=== PATIENT | female | born 1980 | race Hispanic/Latino ===

== ENCOUNTER 2017-02-19 18:12 | Emergency (ER) | payer MEDICAID ==
[2017-02-19 18:43] VITALS: RESP 20; O2SAT 98
[2017-02-19] MEDS ORDERED: Sodium Chloride 0.9% 1,000 ML IV ONE (19:44)
--- NOTE | 2017-02-19 19:47 | C.PDOC ---
History Of Present Illness 36 yo female, at 4 weeks gestation presents with lower abd pain and vaginal bleeding x 5 days. pt states no fevers, no n/v/d, no urinary changes, has not seen ob, does not request pain meds at this time. Time Seen by Provider: 02/19/17 19:41 Chief Complaint (Nursing): Female Genitourinary Past Medical History Reviewed: Historical Data, Nursing Documentation, Vital Signs Vital Signs: Last Vital Signs Temp 98.7 F 02/19/17 18:40 Pulse 74 02/19/17 18:40 Resp 20 02/19/17 18:40 BP 134/76 02/19/17 18:40 Pulse Ox 98 02/19/17 19:47 - Medical History PMH: Anxiety, Bipolar Disorder Family History: States: Unknown Family Hx - Social History Hx Tobacco Use: Yes Hx Alcohol Use: No Hx Substance Use: No - Immunization History Hx Tetanus Toxoid Vaccination: Yes Hx Influenza Vaccination: No Hx Pneumococcal Vaccination: No Review Of Systems Except As Marked, All Systems Reviewed And Found Negative. Gastrointestinal: Positive for: Abdominal Pain Genitourinary: Positive for: Vaginal Bleeding Physical Exam - Physical Exam Appears: Well, No Acute Distress Skin: Normal Color, Warm, Dry Eye(s): bilateral: Normal Inspection, PERRL, EOMI Nose: Normal Throat: Normal Neck: Normal Cardiovascular: Rhythm Regular Respiratory: Normal Breath Sounds Gastrointestinal/Abdominal: Normal Exam, Soft, Tenderness (mild suprapubic), No Guarding, No Rebound Back: Normal Inspection Extremity: Normal ROM ED Course And Treatment - Laboratory Results Result Diagrams: 02/19/17 20:40 02/19/17 20:40 O2 Sat by Pulse Oximetry: 98 Medical Decision Making Medical Decision Making: r/o threated ab vs ectopic. pt does not request pain meds. labs imaging reassess 1030: iup confirmed. abd soft. pt declines pelvic. upon d/c. pt request refill of her nebulizer. lung minimal wheezing at this time Disposition - Disposition Referrals: Elmo Bennett [Staff Provider] - Disposition: HOME/ ROUTINE Disposition Time: 22:25 Condition: STABLE Additional Instructions: please see obgyn. return to er with worsening symptoms or concenrs. Prescriptions: Albuterol HFA [Ventolin HFA 90 mcg/actuation (8 g)] 2 puff IH [id number] PRN #1 puff PRN Reason: Wheezing Instructions: Threatened Miscarriage (ED) - Clinical Impression Clinical Impression: Threatened , Medication refill
[2017-02-19 20:46] LABS: BASO # 0.1 K/uL (0.0-0.2); BASO % 0.8 % (0.0-2.0); EOS # 0.1 K/uL (0.0-0.7); EOS % 1.7 % (0.0-4.0); HEMATOCRIT 42.4 % (34.0-47.0); LYMPH # 1.6 K/uL (1.0-4.3); LYMPH % 18.8 % (20.0-40.0); MEAN CELL VOLUME 92.4 fL (81.0-99.0); MEAN CORPUSCULAR HEMOGLOBIN 31.3 pg (27.0-31.0); MEAN CORPUSCULAR HGB CONC 33.8 g/dL (33.0-37.0); MEAN PLATELET VOLUME 8.1 fL (7.2-11.7); MONO # 0.4 K/uL (0.0-0.8); MONO % 5.3 % (0.0-10.0); NRBC % 0.1 % (0.0-2.0); RED CELL DISTRIBUTION WIDTH 13.4 % (11.5-14.5); WHITE BLOOD COUNT 8.5 K/uL (4.8-10.8)
[2017-02-19 20:58] LABS: CHLORIDE 95 mmol/L (98-107)
[2017-02-19 20:59] LABS: SODIUM 136 mmol/L (132-148)
[2017-02-19 21:00] LABS: RBC URINE 6 /hpf (0-3); URINE BACTERIA RARE (<OCC); URINE BILIRUBIN NEGATIVE (NEGATIVE); URINE COLOR Yellow (YELLOW); URINE GLUCOSE (UA) NORMAL (Normal); URINE KETONE TRACE mg/dL (NEGATIVE); URINE LEUKOCYTE ESTERASE NEG Leu/uL (Negative); URINE PROTEIN NEGATIVE (NEGATIVE); URINE UROBILINOGEN NORMAL mg/dL (0.2-1.0); WBC URINE 1 /hpf (0-5)
[2017-02-19 21:01] LABS: ALB/GLOB RATIO 1.2 (1.0-2.1); ALKALINE PHOSPHATASE 64 U/L (38-126); AST/SGOT 52 U/L (14-36); BILIRUBIN,TOTAL 0.5 mg/dL (0.2-1.3); CARBON DIOXIDE 24 mmol/L (22-30); GFR AFRICAN-AMERICAN > 60; TOTAL PROTEIN 8.5 g/dL (6.3-8.3); URINE BLOOD 1+ (NEGATIVE)
[2017-02-19 21:02] LABS: ALT/SGPT 68 U/L (9-52); BLOOD UREA NITROGEN 9 mg/dL (7-17); CALCIUM 9.3 mg/dl (8.6-10.4); GLUCOSE,RANDOM 90 mg/dL (65-105)
[2017-02-19 21:09] LABS: POTASSIUM 3.9 mmol/L (3.6-5.2)
[2017-02-19 22:38] VITALS: BP 147/64; PULSE 69; TEMP 97.6
--- NOTE | 2017-02-20 09:32 | US ---
PROCEDURE: OB Pelvic Ultrasound HISTORY: Abdominal pain COMPARISON: None available. FINDINGS: UTERUS: Gestational sac: Single intrauterine gestation. Yolk sac and pole are visualized. Heart rate: 126 bpm. age (Ultrasound estimated): 6 weeks and 1 day Maria Alejandra-gestational hemorrhage: There is a small subchorionic hemorrhage measuring 1.1 x 0.3 x 0.8 cm. Date of delivery (Ultrasound estimated) : 10/14/2017 Uterus measures 8.2 x 5.1 x 6.4 cm. Anteverted, normal in size and appearance. CERVIX: Long and closed. No cervical abnormality seen. RIGHT OVARY: Measures 3.7 x 2.4 x 2.8 cm. No mass lesion. Normal flow. There is a 2.2 cm corpus luteum cyst. LEFT OVARY: Measures 2.6 x 1.1 x 1.7 cm. No solid mass. Normal flow. FREE FLUID: None. OTHER FINDINGS: None. IMPRESSION: Single live intrauterine gestation with mean gestational age of 6 weeks and 1 day. The ultrasound dates correspond with the clinical dates. Small subchorionic hemorrhage. Short-term follow-up is advised. A preliminary report was provided by [facility].
== END 2017-02-19 22:38 | disposition home or self-care (01) ==
LOC: C.ER 18:12
DX: O20.0 Threatened abortion (principal); Z3A.01 Less than 8 weeks gestation of pregnancy; Z76.0 Encounter for issue of repeat prescription
CPT/HCPCS: 76805; 76817; 80053; 81001; 84702; 84703; 85025; 85610; 85730; 86850; 86900; 99285; J7040